=== PATIENT | female | born 1940 | race African-American/Black ===

== ENCOUNTER 2017-03-23 10:56 | Day surgery (SDC) | payer MEDICARE, MEDICAID ==
[~2017-03-23] VITALS: Ht 152.4 cm; Wt 38.6 kg
[~2017-03-23 10:56] MED LIST: ACCOLATE; ALBU90AE IH; AMLO10TA80 PO; ASPI-1159 PO; BENA1TAB18 PO; CLOP75TA33 PO; HYDR10SY11 PO; LISI-604 PO; METH2.5T PO; OMEP20CA10 PO; SIMV20TA6 PO; ZAFI20TA12 PO
[2017-03-23] MEDS ORDERED: MIDAZOLAM HCL 2 MG/2 ML VIAL ONE (12:40)
[2017-03-23] MEDS ORDERED: IODIXANOL 320MG/ML 100 ML BOTTLE IV ONE (12:40)
[2017-03-23] MEDS ORDERED: FENTANYL CITRATE/PF 50MCG/ML 2ML VIAL ONE (12:40)
[2017-03-23] MEDS ORDERED: LIDOCAINE HCL 1% 20ML VIAL (Pyxis) INJ ONE (12:40)
[2017-03-23] MEDS ORDERED: HYDROMORPHONE HCL/PF 2MG/ML (OR) ONE (13:09)
[2017-03-23] MEDS ORDERED: ACETAMINOPHEN 325MG TABLET PO PRN (13:45)
[2017-03-23] MEDS ORDERED: ONDANSETRON HCL 4MG/2ML VIAL IV PRN (13:45)
[2017-03-23] MEDS: MORPHINE SULFATE 2 MG/ML CPJ (NOT FOR IM USE) IV PRN ×2 (14:37→15:29)
[2017-03-23 15:29] VITALS: BP 119/53
[2017-03-24] MEDS ORDERED: CLOPIDOGREL 75MG TABLET PO SCH (09:00)
[2017-03-24] MEDS ORDERED: AMLODIPINE 10MG TABLET PO SCH (09:00)
[2017-03-24] MEDS ORDERED: ASPIRIN 81MG EC TABLET PO SCH (09:00)
== END 2017-03-23 17:00 | disposition home or self-care (01) ==
LOC: CCL 10:56
PROVIDERS: ATTEND Specialist
DX: I73.9 Peripheral vascular disease, unspecified (principal); I25.10 Atherosclerotic heart disease of native coronary artery without angina pectoris; E78.5 Hyperlipidemia, unspecified; I10 Essential (primary) hypertension; K21.9 Gastro-esophageal reflux disease without esophagitis; L40.9 Psoriasis, unspecified; Z79.82 Long term (current) use of aspirin; Z87.891 Personal history of nicotine dependence
CPT/HCPCS: 36245; 75710; 99152; 99153; C1725; C1760; C1769; C1893; J1170; J1644; J2250; J2270; J3010; J3490; Q9967